=== PATIENT | female | born 1945 | race African-American/Black ===

== ENCOUNTER 2017-04-10 15:14 | Emergency (ER) | payer OTHER, MEDICARE ==
[~2017-04-10] VITALS: Ht 170.2 cm; Wt 79.4 kg
--- NOTE | ~2017-04-10 | EKG ---
[address] [address] ELECTROCARDIOGRAM REPORT Name: MERY ANN [id number] Admission: 04/10/17 Attend Phys: Discharge: 04/10/17 Date of : 43 Report #: [id number] THIS REPORT FOR: //name// [facility] ED Test Date: 2017-04-10 Test Time: 16:14:01 Pat Name: MERY ANN Department: Room: Gender: F [employer]: savage : 1945 Requested By: Jennifer Heredia Order Number: [id number] MD: Tommy Mendoza Measurements Intervals [place] Rate: 56 P: -32 ID: [id number] QRS: -8 QRSD: 95 T: 33 QT: 420 QTc: 406 Interpretive Statements Sinus rhythm Compared to ECG 03/06/2015 21:52:48 Sinus bradycardia no longer present Electronically Signed On 04-11-2017 11:00:32 CDT by Tommy Mendoza [email or web address] <ELECTRONICALLY SIGNED> By: Tommy Mendoza MD 04/11/17 1100 1614 13 Tommy Mendoza MD /[email or web address]
[~2017-04-10 15:14] MED LIST: AMLODIPINE BESY10 MG PO; ATORVASTATIN CA40 MG PO; COZAAR 50 MG TA50 M2 PO; HYDROCHLOROTH12.5 M1 PO
[2017-04-10] MEDS ORDERED: TOPROL XL25 MG PO (15:33)
[2017-04-10] MEDS ORDERED: HYDRALAZINE 2525 MG PO (15:34)
[2017-04-10 16:29] LABS: HEMATOCRIT 35.7 % (37.0-47.0); HEMOGLOBIN 11.9 gm/dL (12.0-15.0); MCH 29.5 pg (26.0-34.0); MCHC 33.2 g/dL (28.0-37.0); MCV 89.1 fL (80.0-100.0); RBC 4.01 mil/uL (4.20-5.00); RDW 13.5 % (10.5-14.5); WBC 7.9 thou/uL (4.0-11.0)
[2017-04-10 16:40] LABS: ANION GAP 9 mmol/L (7-16); BUN 31 mg/dL (7-18); CALCIUM 10.1 mg/dL (8.5-10.1); CHLORIDE 104 mmol/L (98-107); CO2 29 mmol/L (21-32); CREATININE 1.7 mg/dL (0.6-1.0); GLUCOSE 104 mg/dL (74-106); POTASSIUM 3.5 mmol/L (3.5-5.1); SODIUM 142 mmol/L (136-145)
[2017-04-10 16:49] LABS: TROPONIN-I < 0.04 ng/mL (<0.06)
[2017-04-10 17:29] VITALS: BP 123/52
== END 2017-04-10 17:30 | disposition home or self-care (01) ==
LOC: ER 15:14
PROVIDERS: Emergency Medicine
DX: I10 Essential (primary) hypertension (principal); E11.9 Type 2 diabetes mellitus without complications; F10.99 Alcohol use, unspecified with unspecified alcohol-induced disorder; Z90.710 Acquired absence of both cervix and uterus